=== PATIENT | male | born 1980 | race Caucasian/White ===

== ENCOUNTER 2019-03-04 23:27 | Emergency (ER) | payer OTHER ==
[~2019-03-04] VITALS: Ht 175.3 cm; Wt 108.9 kg
[2019-03-05 02:44] VITALS: BP 129/67
== END 2019-03-05 02:46 | disposition home or self-care (01) ==
LOC: ED 03-05 02:00
DX: N20.0 Calculus of kidney (principal); R31.9 Hematuria, unspecified
CPT/HCPCS: 74176; 81001; 96374; 96375; 99284; J1170; J2405